=== PATIENT | male | born 1940 | race Caucasian/White ===

== ENCOUNTER → 2016-12-03 | Outpatient (CLI) | payer OTHER ==
[~2016-12-03] MED LIST: ALBU6.7H INH; APIX5TAB PO; ASPI-621 PO; ATOR40TA PO; ENOX120S5 SQ; FURO20TA3 PO; GUAI600T53 PO; HYDR-3241 PO; LEVO500T33 PO; LOSA100T6 PO; LOSA1TAB16 PO; LOSA1TAB18 PO; MELO-190 PO; METO25TA91 PO; PRED10TA PO; SENN1TAB7 PO; SIMV20TA3 PO; TEMA15CA6 PO; TIOT18CA INH; WARF5TAB PO; WARF7.5T PO
== END | disposition home or self-care (01) ==
LOC: LAB 09:45
PROVIDERS: ATTEND Internal Medicine
DX: Z79.899 Other long term (current) drug therapy (principal)
CPT/HCPCS: 36415; 80076

== ENCOUNTER → 2016-12-27 | Outpatient (CLI) | payer OTHER | END | disposition home or self-care (01) | LOC: RAD 09:45 | PROVIDERS: ATTEND Internal Medicine Geriatric Medicine | DX: Z51.89 Encounter for other specified aftercare (principal); R13.10 Dysphagia, unspecified; R05 Cough | CPT/HCPCS: 74230 ==

== ENCOUNTER 2016-12-29 13:05 | Emergency (ER) | payer OTHER ==
[~2016-12-29] VITALS: Ht 180.3 cm; Wt 122.5 kg
[2016-12-29] MEDS ORDERED: ASPIRIN 81 MG TABLET CHEW PO ONE (13:30)
[2016-12-29] MEDS ORDERED: SODIUM CHLORIDE FLUSH 10ML SYR IVF ONE (13:30)
[2016-12-29] MEDS ORDERED: DILTIAZEM 5 MG/ML, 5ML IVPush ONE (14:00)
[2016-12-29] MEDS ORDERED: PROPOFOL 10 MG/ML, 20ML IVPush ONE (14:00)
[2016-12-29 14:11] LABS: ASPARTATE AMINO TRANSFERASE 16 U/L (15-37); BLOOD UREA NITROGEN 30 mg/dL (7-18)
[2016-12-29] MEDS ORDERED: DILTIAZEM 5 MG/ML, 5ML ONE (14:14)
[2016-12-29] MEDS ORDERED: PROPOFOL 10 MG/ML, 20ML ONE (14:14)
[2016-12-29 14:16] LABS: IS PT STATUS REG ER OR PRE ER? YES
[2016-12-29] MEDS ORDERED: ASPIRIN 81 MG TABLET CHEW ONE (14:29)
[2016-12-29] MEDS ORDERED: LOSA25TA5 PO (15:09)
[2016-12-29] MEDS ORDERED: RIVA20TA PO (15:09)
[2016-12-29] MEDS ORDERED: METH2.5T PO (15:09)
[2016-12-29] MEDS ORDERED: SODIUM CHLORIDE 0.9%, 500ML IVBOLUS ONE ×2 (15:30→16:00)
[2016-12-29] MEDS ORDERED: ETOMIDATE 20 MG/10 ML ONE (15:51)
[2016-12-29] MEDS ORDERED: ETOMIDATE 20 MG/10 ML IVPush ONE (16:00)
[2016-12-29 16:14] LABS: IS PT STATUS REG ER OR PRE ER? YES
[2016-12-29 18:27] VITALS: BP 109/64
== END 2016-12-29 18:29 | disposition home or self-care (01) ==
LOC: ED 14:22
DX: I48.0 Paroxysmal atrial fibrillation (principal); R00.2 Palpitations; Z79.01 Long term (current) use of anticoagulants; I10 Essential (primary) hypertension; Z86.718 Personal history of other venous thrombosis and embolism
CPT/HCPCS: 36415; 71010; 80053; 83735; 83880; 84484; 85025; 92960; 93005; 93971; 96361; 96374; 99152; 99291; 99292; J7040

== ENCOUNTER 2017-01-05 10:09 | Emergency (ER) | payer OTHER ==
[~2017-01-05] VITALS: Ht 180.3 cm; Wt 123.3 kg
[~2017-01-05 10:09] MED LIST changes: +LOSA25TA5 PO; +METH2.5T PO; +RIVA20TA PO
[2017-01-05] MEDS ORDERED: SODIUM CHLORIDE 0.9% 1,000 ML IV ONE (11:07)
[2017-01-05] MEDS ORDERED: ASPIRIN 81 MG TABLET CHEW ONE (11:18)
[2017-01-05] MEDS ORDERED: SODIUM CHLORIDE FLUSH 10ML SYR IVF ONE (11:30)
[2017-01-05] MEDS ORDERED: ASPIRIN 81 MG TABLET CHEW PO ONE (11:30)
[2017-01-05 11:43] LABS: BLOOD UREA NITROGEN 24 mg/dL (7-18)
[2017-01-05 11:49] LABS: IS PT STATUS REG ER OR PRE ER? YES
[2017-01-05] MEDS ORDERED: PROPOFOL 10 MG/ML, 20ML IVPush ONE (12:00)
[2017-01-05] MEDS ORDERED: PROPOFOL 10 MG/ML, 20ML ONE (12:04)
[2017-01-05 13:05] VITALS: BP 107/62
== END 2017-01-05 13:35 | disposition home or self-care (01) ==
LOC: ED 10:45
DX: I48.0 Paroxysmal atrial fibrillation (principal); I10 Essential (primary) hypertension; J45.909 Unspecified asthma, uncomplicated; Z85.46 Personal history of malignant neoplasm of prostate
CPT/HCPCS: 36415; 71010; 80048; 82040; 83880; 84484; 85025; 92960; 93005; 96360; 96361; 99152; 99285; J2704; J7030

== ENCOUNTER 2017-01-26 10:47 | Emergency (ER) | payer OTHER ==
[~2017-01-26] VITALS: Ht 180.3 cm; Wt 124.0 kg
[2017-01-26] MEDS ORDERED: DILTIAZEM 5 MG/ML, 5ML IVPush ONE (11:03)
[2017-01-26] MEDS ORDERED: DILTIAZEM 5 MG/ML, 5ML ONE (11:05)
[2017-01-26] MEDS ORDERED: SODIUM CHLORIDE FLUSH 10ML SYR IVF ONE (11:30)
[2017-01-26] MEDS ORDERED: SODIUM CHLORIDE 0.9% 1,000ML IVBOLUS ONE (11:30)
[2017-01-26 11:35] LABS: ASPARTATE AMINO TRANSFERASE 18 U/L (15-37); BLOOD UREA NITROGEN 23 mg/dL (7-18)
[2017-01-26 11:39] LABS: IS PT STATUS REG ER OR PRE ER? YES
[2017-01-26 12:00] VITALS: BP 128/80
[2017-01-26] MEDS ORDERED: PROPOFOL 10 MG/ML, 20ML ONE (12:22)
[2017-01-26] MEDS ORDERED: PROPOFOL 10 MG/ML, 20ML IVP ONE (12:30)
== END 2017-01-26 13:43 | disposition home or self-care (01) ==
LOC: ED 12:59
DX: I48.0 Paroxysmal atrial fibrillation (principal); Z79.01 Long term (current) use of anticoagulants; I10 Essential (primary) hypertension; Z85.46 Personal history of malignant neoplasm of prostate
CPT/HCPCS: 36415; 71010; 80053; 83735; 83880; 84484; 85025; 85610; 93005; 96361; 96374; 99152; 99153; 99291; J7030

== ENCOUNTER → 2017-01-30 | Outpatient (CLI) | payer OTHER | LOC: STAR 13:34 | PROVIDERS: ATTEND Internal Medicine Cardiovascular Disease | DX: Z02.9 Encounter for administrative examinations, unspecified (principal) ==

== ENCOUNTER → 2017-01-31 | Outpatient (CLI) | payer OTHER ==
[~2017-01-31] MED LIST changes: +OMNIPAQUE 350 MG/ML, 150 ML BOTTLE ONE
== END | disposition home or self-care (01) ==
LOC: CFH 11:24
PROVIDERS: ATTEND Internal Medicine Cardiovascular Disease
DX: I48.91 Unspecified atrial fibrillation (principal); I49.9 Cardiac arrhythmia, unspecified; I26.99 Other pulmonary embolism without acute cor pulmonale; N28.9 Disorder of kidney and ureter, unspecified
CPT/HCPCS: 71020; 75572; Q9967

== ENCOUNTER 2017-02-02 17:50 | Emergency (ER) | payer OTHER ==
[~2017-02-02] VITALS: Ht 180.3 cm; Wt 123.8 kg
[~2017-02-02 17:50] MED LIST changes: -OMNIPAQUE 350 MG/ML, 150 ML BOTTLE ONE
[2017-02-02] MEDS ORDERED: LIDOCAINE 1%, 20ML ONE (19:00)
[2017-02-02] MEDS ORDERED: LIDOCAINE 1%, 20ML SQ ONE (19:00)
[2017-02-02] MEDS ORDERED: DIPH,PERTUSS(ACELL),TET VAC/PF 0.5 ML IM-VACC ONE ×2 (19:00)
[2017-02-02 21:17] VITALS: BP 152/81
== END 2017-02-02 21:19 | disposition home or self-care (01) ==
LOC: ED 21:10
DX: S62.521A Displaced fracture of distal phalanx of right thumb, initial encounter for closed fracture (principal); S61.011A Laceration without foreign body of right thumb without damage to nail, initial encounter; I10 Essential (primary) hypertension; I48.91 Unspecified atrial fibrillation; Z85.46 Personal history of malignant neoplasm of prostate; W45.8XXA Other foreign body or object entering through skin, initial encounter; Y93.89 Activity, other specified; Y92.89 Other specified places as the place of occurrence of the external cause; Y99.8 Other external cause status
CPT/HCPCS: 12001; 73140; 90471; 90715; 99284; J3490

== ENCOUNTER → 2017-05-09 | Outpatient (CLI) | payer OTHER ==
[~2017-05-09] MED LIST changes: +ALBU18HF INH; +CEPH-376 PO; -GUAI600T53 PO; +GUAI600T80 PO; +HYDR-3240 PO; -LEVO500T33 PO; +LEVO500T47 PO; -MELO-190 PO; +MELO7.5T31 PO; +OMEP40CA6 PO; +SOTA120T14 PO
== END | disposition home or self-care (01) ==
LOC: CFH 13:46
PROVIDERS: ATTEND Physician Assistant Surgical
DX: M16.0 Bilateral primary osteoarthritis of hip (principal); M25.752 Osteophyte, left hip; M43.28 Fusion of spine, sacral and sacrococcygeal region; M51.26 Other intervertebral disc displacement, lumbar region; M51.27 Other intervertebral disc displacement, lumbosacral region; M47.897 Other spondylosis, lumbosacral region; M47.896 Other spondylosis, lumbar region; M54.16 Radiculopathy, lumbar region; M48.06 Spinal stenosis, lumbar region
CPT/HCPCS: 72148; 73523

== ENCOUNTER → 2017-06-03 | Outpatient (CLI) | payer OTHER | END | disposition home or self-care (01) | LOC: CFH 11:48 | PROVIDERS: ATTEND Family Medicine | DX: Z01.818 Encounter for other preprocedural examination (principal); M47.894 Other spondylosis, thoracic region | CPT/HCPCS: 71020 ==

== ENCOUNTER 2017-12-27 15:35 | Emergency (ER) | payer OTHER ==
[~2017-12-27] VITALS: Ht 180.3 cm; Wt 125.0 kg
[~2017-12-27 15:35] MED LIST changes: -LOSA1TAB16 PO; -LOSA1TAB18 PO; +LOSA1TAB19 PO; +LOSA1TAB25 PO
[2017-12-27] MEDS ORDERED: SOTA80TA PO (16:16)
[2017-12-27] MEDS ORDERED: TIOT18CA INH (16:17)
[2017-12-27 16:25] LABS: BASOPHILS # (AUTO) 0.03 x10^3/uL (0-0.1); BASOPHILS % (AUTO) 0 % (0-1); EOSINOPHILS # (AUTO) 0.15 x10^3/uL (0-0.4); EOSINOPHILS % (AUTO) 2 % (1-7); LYMPHOCYTES # (AUTO) 1.69 x10^3/uL (1-3.4); LYMPHOCYTES % (AUTO) 20 % (22-44); MD NO; MEAN CORPUSCULAR HEMOGLOBIN 27.8 pg (27.5-34.5); MEAN CORPUSCULAR HGB CONC 33.3 g/dL (33.2-36.2); MEAN CORPUSCULAR VOLUME 83.3 fL (81-97); MEAN PLATELET VOLUME 8.4 fL (7.4-10.4); MONOCYTES # (AUTO) 0.86 x10^3/uL (0.2-0.8); MONOCYTES % (AUTO) 10 % (2-9); NEUTROPHILS # (AUTO) 5.73 x10^3/uL (1.8-6.8); NEUTROPHILS % (AUTO) 68 % (42-75); PLATELET COUNT 198 x10^3/uL (130-400); RED BLOOD COUNT 4.95 x10^6/uL (4.38-5.82); RED CELL DISTRIBUTION WIDTH 15.9 % (9.4-14.8)
[2017-12-27 16:37] LABS: ALBUMIN 3.9 g/dL (3.4-5.0); ANION GAP 8 mmol/L (5-15); CALCIUM 9.1 mg/dL (8.5-10.1); CHLORIDE 110 mmol/L (98-107); CREATININE 1.28 mg/dL (0.7-1.3)
[2017-12-27 16:40] LABS: TROPONIN I < 0.015 ng/mL (0.000-0.045)
[2017-12-27 17:19] VITALS: BP 114/71
== END 2017-12-27 17:48 | disposition home or self-care (01) ==
LOC: ED 17:30
DX: I48.0 Paroxysmal atrial fibrillation (principal); Z79.01 Long term (current) use of anticoagulants
CPT/HCPCS: 36415; 71045; 80048; 82040; 84484; 85025; 93005; 99285

== ENCOUNTER → 2018-01-05 | Outpatient (CLI) | payer OTHER ==
[~2018-01-05] MED LIST changes: +SOTA80TA PO
== END | disposition home or self-care (01) ==
LOC: CVU 09:01
PROVIDERS: ATTEND Internal Medicine Cardiovascular Disease
DX: I35.8 Other nonrheumatic aortic valve disorders (principal); J81.1 Chronic pulmonary edema; I10 Essential (primary) hypertension; G47.33 Obstructive sleep apnea (adult) (pediatric); I48.91 Unspecified atrial fibrillation; Z85.46 Personal history of malignant neoplasm of prostate
CPT/HCPCS: C8929

== ENCOUNTER → 2018-01-15 | Outpatient (CLI) | payer OTHER ==
[~2018-01-15] MED LIST changes: +REGADENOSON 0.4 MG/5 ML SYRINGE ONE
== END | disposition home or self-care (01) ==
LOC: CFH 11:47
PROVIDERS: ATTEND Internal Medicine Cardiovascular Disease
DX: R07.9 Chest pain, unspecified (principal)
CPT/HCPCS: 78452; 93017; A9502; J2785

== ENCOUNTER 2018-04-27 14:53 | Emergency (ER) | payer OTHER ==
[~2018-04-27] VITALS: Ht 180.3 cm; Wt 120.7 kg
[~2018-04-27 14:53] MED LIST changes: -REGADENOSON 0.4 MG/5 ML SYRINGE ONE
[2018-04-27 15:28] LABS: BASOPHILS # (AUTO) 0.04 x10^3/uL (0-0.1); BASOPHILS % (AUTO) 0 % (0-1); EOSINOPHILS % (AUTO) 0 % (1-7); LYMPHOCYTES # (AUTO) 0.72 x10^3/uL (1-3.4); LYMPHOCYTES % (AUTO) 5 % (22-44); MD NO; MEAN CORPUSCULAR HEMOGLOBIN 29.7 pg (27.5-34.5); MEAN CORPUSCULAR HGB CONC 33.9 g/dL (33.2-36.2); MEAN CORPUSCULAR VOLUME 87.4 fL (81-97); MEAN PLATELET VOLUME 8.5 fL (7.4-10.4); MONOCYTES % (AUTO) 7 % (2-9); NEUTROPHILS % (AUTO) 88 % (42-75); PLATELET COUNT 210 x10^3/uL (130-400); RED BLOOD COUNT 4.56 x10^6/uL (4.38-5.82)
[2018-04-27] MEDS ORDERED: LOSA1TAB25 PO (15:33)
[2018-04-27 15:41] LABS: ALBUMIN 3.8 g/dL (3.4-5.0); ANION GAP 8 mmol/L (5-15); CALCIUM 8.4 mg/dL (8.5-10.1); CHLORIDE 106 mmol/L (98-107)
[2018-04-27 15:47] LABS: ALANINE AMINOTRANSFERASE 40 U/L (12-78); ALKALINE PHOSPHATASE 71 U/L (45-117); BILIRUBIN,TOTAL 0.4 mg/dL (0.2-1.0); CREATININE 1.39 mg/dL (0.7-1.3); TOTAL PROTEIN 7.6 g/dL (6.4-8.2); TROPONIN I < 0.015 ng/mL (0.000-0.045)
[2018-04-27 16:06] LABS: FREE T4 (FREE THYROXINE) 0.91 ng/dL (0.76-1.46); THYROID STIMULATING HORMONE 0.502 mIU/L (0.358-3.740)
[2018-04-27 17:14] VITALS: BP 139/76
== END 2018-04-27 17:16 | disposition home or self-care (01) ==
LOC: ED 17:10
DX: R00.2 Palpitations (principal); N28.9 Disorder of kidney and ureter, unspecified; I11.9 Hypertensive heart disease without heart failure; J45.909 Unspecified asthma, uncomplicated; M19.90 Unspecified osteoarthritis, unspecified site; R53.83 Other fatigue; R07.9 Chest pain, unspecified; I49.9 Cardiac arrhythmia, unspecified; Z85.46 Personal history of malignant neoplasm of prostate; Z86.711 Personal history of pulmonary embolism
CPT/HCPCS: 36415; 71045; 80053; 83735; 83880; 84439; 84443; 84484; 85025; 93005; 99285

== ENCOUNTER → 2018-07-17 | Outpatient (CLI) | payer OTHER ==
[~2018-07-17] MED LIST changes: -LOSA100T6 PO; +LOSA100T7 PO; -LOSA25TA5 PO; +LOSA25TA6 PO; -SENN1TAB7 PO; +SENN1TAB8 PO; +TICA90TA PO
== END | disposition home or self-care (01) ==
LOC: CFH 15:20
PROVIDERS: ATTEND Family Medicine
DX: M75.121 Complete rotator cuff tear or rupture of right shoulder, not specified as traumatic (principal); M19.011 Primary osteoarthritis, right shoulder; M62.511 Muscle wasting and atrophy, not elsewhere classified, right shoulder; M25.411 Effusion, right shoulder

== ENCOUNTER 2018-12-02 17:30 | Emergency (ER) | payer BC, OTHER ==
[~2018-12-02] VITALS: Ht 180.3 cm; Wt 122.8 kg
[~2018-12-02 17:30] MED LIST changes: -ASPI-621 PO; +ASPI81TA45 PO; +LOSA100T14 PO; -LOSA100T7 PO; +LOSA25TA25 PO; -LOSA25TA6 PO; +SENN-177 PO; -SENN1TAB8 PO
[2018-12-02 17:38] VITALS: BP 179/92
[2018-12-02 18:14] LABS: INTERNATIONAL NORMALIZED RATIO 1.02 (0.93-1.1); PROTHROMBIN TIME 10.7 Seconds (9.6-11.5)
[2018-12-02 18:16] LABS: BASOPHILS # (AUTO) 0.02 x10^3/uL (0-0.1); BASOPHILS % (AUTO) 0 % (0-1); EOSINOPHILS # (AUTO) 0.26 x10^3/uL (0-0.4); EOSINOPHILS % (AUTO) 5 % (1-7); LYMPHOCYTES # (AUTO) 1.17 x10^3/uL (1-3.4); LYMPHOCYTES % (AUTO) 22 % (22-44); MD NO; MEAN CORPUSCULAR HEMOGLOBIN 28.9 pg (27.5-34.5); MEAN CORPUSCULAR HGB CONC 33.9 g/dL (33.2-36.2); MEAN CORPUSCULAR VOLUME 85.1 fL (81-97); MEAN PLATELET VOLUME 8.3 fL (7.4-10.4); MONOCYTES # (AUTO) 0.55 x10^3/uL (0.2-0.8); MONOCYTES % (AUTO) 10 % (2-9); NEUTROPHILS # (AUTO) 3.34 x10^3/uL (1.8-6.8); NEUTROPHILS % (AUTO) 63 % (42-75); PLATELET COUNT 168 x10^3/uL (130-400); RED BLOOD COUNT 4.18 x10^6/uL (4.38-5.82); RED CELL DISTRIBUTION WIDTH 15.8 % (9.4-14.8)
[2018-12-02 18:17] LABS: ALANINE AMINOTRANSFERASE 23 U/L (12-78); ALBUMIN 3.9 g/dL (3.4-5.0); ANION GAP 5 mmol/L (5-15); CALCIUM 8.6 mg/dL (8.5-10.1); CHLORIDE 108 mmol/L (98-107); CREATININE 1.46 mg/dL (0.7-1.3)
[2018-12-02 18:20] LABS: ALKALINE PHOSPHATASE 70 U/L (45-117); BILIRUBIN,TOTAL 0.5 mg/dL (0.2-1.0); TOTAL PROTEIN 6.9 g/dL (6.4-8.2)
--- NOTE | 2018-12-02 18:37 | NUR ---
FIRST CONTACT WITH PT. NAD NOTED. PT AMBULATED STEADILY TO BATHROOM TO PROVIDE UA . UA COLLECTED AND SENT TO LAB. PT CO BLOOD IN URINE X LAST NIGHT, WORSENING TODAY. ON BLOOD THINNER, XARELTO, FOR AFIB. PT DENIES ABD PAIN/PAINFUL URINATION/CHILLS/N/V. HX OF BPH.
[2018-12-02] MEDS ORDERED: PRAS10TA4 PO (18:43)
[2018-12-02] MEDS ORDERED: ATOR-2 PO (18:43)
[2018-12-02 18:49] LABS: MICROSCOPIC INDICATED
[2018-12-02 18:57] LABS: CULTURE INDICATED? NO
--- NOTE | 2018-12-02 19:52 | NUR ---
3 way hernandez catheter inserted. manual irrigation attempted, blood tinged output with no clots. CBI started.
--- NOTE | 2018-12-02 19:54 | NUR ---
CONTINUOUS BLADDER IRRIGATION UNDERWAY. OUTPUT PINK, NO CLOTS OR MAGDA BLOOD NOTED. PT DENIES PAIN/NEEDS AT THIS TIME.
--- NOTE | 2018-12-02 20:37 | NUR ---
DC INSTRUCTIONS REVIEWED WITH PT WHO DEMONSTRATES UNDERSTANDING. AWAITING BLADDER IRRIGATION TO COMPLETE TO DC COWAN AND DC PT.
--- NOTE | 2018-12-02 21:16 | NUR ---
COWAN DC'D WO DIFFICULTY. PT AMBULATED STEADILY TO DC WITH RN
== END 2018-12-02 21:18 | disposition home or self-care (01) ==
LOC: ED 19:27
DX: R31.0 Gross hematuria (principal); J45.909 Unspecified asthma, uncomplicated; I10 Essential (primary) hypertension
CPT/HCPCS: 36415; 74176; 80053; 81001; 85025; 85610; 85730; 99284

== ENCOUNTER 2019-10-14 10:11 | Day surgery (SDC) | payer BC ==
[~2019-10-14] VITALS: Ht 180.3 cm; Wt 120.0 kg
[~2019-10-14 10:11] MED LIST changes: -ALBU6.7H INH; +ALBU6.7H8 INH; +ATOR-2 PO; +OMEP40CA42 PO; -OMEP40CA6 PO; +PRAS10TA4 PO; +SIMV20TA19 PO; -SIMV20TA3 PO
[2019-10-14] MEDS ORDERED: LIDOCAINE 2%, 20ML ONE (11:01)
[2019-10-14] MEDS ORDERED: LIDOCAINE 1%, 20ML ONE (11:01)
== END 2019-10-14 12:01 | disposition home or self-care (01) ==
LOC: CACL 10:11
PROVIDERS: ATTEND Internal Medicine Cardiovascular Disease
DX: I63.9 Cerebral infarction, unspecified (principal); G47.30 Sleep apnea, unspecified; I48.91 Unspecified atrial fibrillation; E78.5 Hyperlipidemia, unspecified; K21.9 Gastro-esophageal reflux disease without esophagitis; M06.9 Rheumatoid arthritis, unspecified; I10 Essential (primary) hypertension; E66.3 Overweight; Z68.37 Body mass index [BMI] 37.0-37.9, adult; Z79.01 Long term (current) use of anticoagulants; Z79.82 Long term (current) use of aspirin; Z79.899 Other long term (current) drug therapy; Z96.641 Presence of right artificial hip joint; Z98.61 Coronary angioplasty status
CPT/HCPCS: 33285; C1764

== ENCOUNTER 2019-11-01 08:29 | Day surgery (SDC) | payer BC ==
[~2019-11-01] VITALS: Ht 180.3 cm; Wt 120.0 kg
[2019-11-01 08:48] VITALS: BP 138/66
[2019-11-01] MEDS ORDERED: ROSU10TA2 PO (08:52)
[2019-11-01] MEDS ORDERED: SOTA80TA PO (08:54)
[2019-11-01] MEDS ORDERED: PLEASE ENTER HEIGHT AND WEIGHT MC SCH (09:00)
[2019-11-01] MEDS ORDERED: SODIUM CHLORIDE 0.9% 1,000 ML IV SCH (09:00)
[2019-11-01] MEDS ORDERED: PROPOFOL 10 MG/ML, 20ML ONE (10:10)
== END 2019-11-01 12:12 | disposition home or self-care (01) ==
LOC: CACL 08:29
PROVIDERS: ATTEND Internal Medicine Cardiovascular Disease
DX: I48.91 Unspecified atrial fibrillation (principal); I34.0 Nonrheumatic mitral (valve) insufficiency; G45.9 Transient cerebral ischemic attack, unspecified; E78.5 Hyperlipidemia, unspecified; G47.30 Sleep apnea, unspecified; I10 Essential (primary) hypertension; Z79.82 Long term (current) use of aspirin; Z98.890 Other specified postprocedural states; Z98.61 Coronary angioplasty status
CPT/HCPCS: 93312; 93321; 93325; J2704

== ENCOUNTER 2019-11-05 22:06 | Inpatient (IN) | payer BC ==
[~2019-11-05] VITALS: Ht 180.3 cm; Wt 108.1 kg
[~2019-11-05 22:06] MED LIST changes: +ROSU10TA2 PO
[2019-11-05] MEDS ORDERED: SODIUM CHLORIDE FLUSH 10ML SYR IVF ONE (22:30)
[2019-11-05] MEDS ORDERED: ONDANSETRON 2MG/ML, 2ML IVPush ONE (22:30)
[2019-11-05] MEDS ORDERED: ASPIRIN 81 MG TABLET CHEW PO ONE (22:30)
[2019-11-05] MEDS ORDERED: NITROGLYCERIN SINGLE TAB 0.4 MG SL PRN (22:30)
[2019-11-05] MEDS ORDERED: MORPHINE SULFATE 4 MG/ML, 1ML IVPush PRN (22:30)
[2019-11-05 22:37] LABS: BASOPHILS # (AUTO) 0.04 x10^3/uL (0-0.1); BASOPHILS % (AUTO) 1 % (0-1); EOSINOPHILS # (AUTO) 0.23 x10^3/uL (0-0.4); EOSINOPHILS % (AUTO) 3 % (1-7); LYMPHOCYTES # (AUTO) 1.63 x10^3/uL (1-3.4); LYMPHOCYTES % (AUTO) 23 % (22-44); MD NO; MEAN CORPUSCULAR HEMOGLOBIN 29.1 pg (27.5-34.5); MEAN CORPUSCULAR HGB CONC 33.4 g/dL (33.2-36.2); MEAN CORPUSCULAR VOLUME 87.2 fL (81-97); MEAN PLATELET VOLUME 8.7 fL (7.4-10.4); MONOCYTES # (AUTO) 0.84 x10^3/uL (0.2-0.8); MONOCYTES % (AUTO) 12 % (2-9); NEUTROPHILS % (AUTO) 62 % (42-75); PLATELET COUNT 154 x10^3/uL (130-400); RED BLOOD COUNT 4.46 x10^6/uL (4.38-5.82); RED CELL DISTRIBUTION WIDTH 14.9 % (9.4-14.8)
[2019-11-05] MEDS ORDERED: ONDANSETRON 2MG/ML, 2ML ONE (22:38)
[2019-11-05] MEDS ORDERED: MORPHINE SULFATE 4 MG/ML, 1ML ONE (22:38)
[2019-11-05] MEDS ORDERED: ASPIRIN 81 MG TABLET CHEW ONE (22:38)
[2019-11-05] MEDS ORDERED: NITROGLYCERIN SINGLE TAB 0.4 MG SL ONE (22:38)
--- NOTE | 2019-11-05 22:40 | NUR ---
THIS IS A 79 YO MALE COMING IN FOR INTERMTTENT "CHEST PRESSURE AND HEAVINESS" STARTING AT 10AM, RADIATES ACROSS CHEST WITH SOB WHEN SENSATION COMES ON AND RIGHT SIDED FACIAL NUMBNESS. DENIES ANY PAIN OR SOB AT THIS TIME. PATIENT HAS HX OF STENTS PLACED, PATIENT UNSURE IF THEY WERE PLACED FROM [place]. PATIENT HAS HX OF TIA ONE MONTH AGO, AND AFIB. A&OX4, SPEAKING IN FULL SENTENCES, CSM IN TACT IN ALL 4 EXTREMITIES. ALL MONITORING IN PLACE, AFIB ON MONITOR AT RATE OF 59. ERP TO ROOM AT THIS TIME.
[2019-11-05 22:47] LABS: ALANINE AMINOTRANSFERASE 26 U/L (12-78); ALBUMIN 3.6 g/dL (3.4-5.0); ANION GAP 5 mmol/L (5-15); CALCIUM 8.7 mg/dL (8.5-10.1); CHLORIDE 107 mmol/L (98-107); CREATININE 1.67 mg/dL (0.7-1.3)
[2019-11-05 22:51] LABS: ALKALINE PHOSPHATASE 69 U/L (45-117); BILIRUBIN,TOTAL 0.4 mg/dL (0.2-1.0); TOTAL PROTEIN 6.8 g/dL (6.4-8.2); TROPONIN I 0.082 ng/mL (0.000-0.045)
--- NOTE | 2019-11-05 22:54 | NUR ---
PATIENT MEDICATED PER EMAR, TOLERATED WELL. PATIENT REFUSING MORPHINE AND ZOFRAN AT THIS TIME. ERP AWARE
[2019-11-05 23:06] LABS: INTERNATIONAL NORMALIZED RATIO 1.09 (0.93-1.1); PROTHROMBIN TIME 11.6 Seconds (9.6-11.5)
--- NOTE | 2019-11-05 23:21 | NUR ---
ERP TO BEDSIDE, PATIENT TO BE ADMITTED, VSS, BP AT 90/49, ERP AND ADMITTING MD NOTIFIED.
--- NOTE | 2019-11-05 23:25 | NUR ---
MANUAL BP TAKEN 102/68. ERP NOTIFIED
--- NOTE | 2019-11-05 23:58 | NUR ---
REPORT GIVEN TO CATHY WONG. PLAN OF CARE DISCUSSED
[2019-11-06] MEDS ORDERED: LIDODERM 5% PATCH TD PRN
[2019-11-06] MEDS ORDERED: HEPARIN 5,000 UNITS/ML, 1ML SQ SCH
[2019-11-06] MEDS ORDERED: DOCUSATE 100 MG CAPSULE PO PRN
[2019-11-06] MEDS ORDERED: TEMAZEPAM 15 MG CAPSULE PO PRN
[2019-11-06] MEDS ORDERED: NITROGLYCERIN 0.4 MG BOTTLE (25 TABS) SL PRN
[2019-11-06] MEDS ORDERED: ACETAMINOPHEN 325 MG TABLET PO PRN
[2019-11-06] MEDS ORDERED: ONDANSETRON ODT 4 MG PO PRN
[2019-11-06 00:49] VITALS: BP 115/74
[2019-11-06] MEDS ORDERED: ALBUTEROL/IPRATROPIUM 2.5MG/0.5MG, 3 ML NPPB SCH (01:30)
[2019-11-06] MEDS: HEPARIN/XARELTO MC SCH ×2 (02:42→05:25)
[2019-11-06] MEDS: SODIUM CHLORIDE 0.9% 1,000 ML IV SCH ×2 (03:08→09:12)
[2019-11-06 04:59] LABS: BASOPHILS # (AUTO) 0.02 x10^3/uL (0-0.1); BASOPHILS % (AUTO) 0 % (0-1); EOSINOPHILS # (AUTO) 0.23 x10^3/uL (0-0.4); EOSINOPHILS % (AUTO) 4 % (1-7); LYMPHOCYTES % (AUTO) 24 % (22-44); MD NO; MEAN CORPUSCULAR HEMOGLOBIN 29.3 pg (27.5-34.5); MEAN CORPUSCULAR HGB CONC 33.5 g/dL (33.2-36.2); MEAN CORPUSCULAR VOLUME 87.5 fL (81-97); MEAN PLATELET VOLUME 8.7 fL (7.4-10.4); MONOCYTES # (AUTO) 0.83 x10^3/uL (0.2-0.8); MONOCYTES % (AUTO) 13 % (2-9); NEUTROPHILS # (AUTO) 3.97 x10^3/uL (1.8-6.8); NEUTROPHILS % (AUTO) 60 % (42-75); PLATELET COUNT 134 x10^3/uL (130-400); RED BLOOD COUNT 4.04 x10^6/uL (4.38-5.82); RED CELL DISTRIBUTION WIDTH 14.5 % (9.4-14.8)
[2019-11-06 05:12] LABS: ANION GAP 5 mmol/L (5-15); CHLORIDE 110 mmol/L (98-107)
[2019-11-06 05:28] LABS: CALCIUM 8.5 mg/dL (8.5-10.1); CREATININE 1.45 mg/dL (0.7-1.3); TROPONIN I 0.096 ng/mL (0.000-0.045)
[2019-11-06 06:55] VITALS: BP 102/63
[2019-11-06] MEDS ORDERED: ALBUTEROL/IPRATROPIUM 2.5MG/0.5MG, 3 ML NPPB PRN (08:00)
[2019-11-06] MEDS ORDERED: TEMPLATE NON-FORMULARY MED. (Albuterol Sulfate (Ventolin Hfa) 2 PUFF(S)) INH SCH (09:00)
[2019-11-06] MEDS: ASPIRIN 81 MG TABLET EC PO SCH (09:04)
[2019-11-06] MEDS: HYDROCHLOROTHIAZIDE 12.5 MG CAPSULE PO SCH (09:04)
[2019-11-06] MEDS: LOSARTAN 100 MG TAB PO SCH (09:05)
[2019-11-06] MEDS: SOTALOL 80MG TABLET PO SCH ×2 (09:06→21:05)
[2019-11-06] MEDS: RIVAROXABAN 20 MG TABLET PO SCH (09:12)
[2019-11-06] MEDS ORDERED: REGADENOSON 0.4 MG/5 ML SYRINGE ONE (10:35)
[2019-11-06 13:01] LABS: TROPONIN I 0.068 ng/mL (0.000-0.045)
[2019-11-06 13:07] VITALS: BP 129/69
[2019-11-06 19:32] VITALS: BP 130/75
[2019-11-06 21:02] VITALS: BP 131/77
[2019-11-06 23:51] VITALS: BP 124/67
[2019-11-07 07:05] VITALS: BP 106/64
[2019-11-07] MEDS ORDERED: LOSA100T2 PO (10:21)
[2019-11-07] MEDS ORDERED: ATOR40TA PO (10:26)
[2019-11-07] MEDS: HYDROCHLOROTHIAZIDE 12.5 MG CAPSULE PO SCH (11:15)
[2019-11-07] MEDS: RIVAROXABAN 20 MG TABLET PO SCH (11:15)
[2019-11-07] MEDS: LOSARTAN 100 MG TAB PO SCH (11:15)
[2019-11-07] MEDS: ASPIRIN 81 MG TABLET EC PO SCH (11:16)
[2019-11-07] MEDS: SOTALOL 80MG TABLET PO SCH (11:16)
== END 2019-11-07 12:26 | disposition home or self-care (01) | DRG 280 ==
LOC: ED 22:56 → EDIP 23:19 → 5SO 11-06 00:09 → DCLOUNGE 11-07 12:20
PROVIDERS: ADMIT Internal Medicine; ATTEND Internal Medicine
DX: I21.4 Non-ST elevation (NSTEMI) myocardial infarction (principal); N17.0 Acute kidney failure with tubular necrosis; D68.59 Other primary thrombophilia; I69.354 Hemiplegia and hemiparesis following cerebral infarction affecting left non-dominant side; D64.9 Anemia, unspecified; E78.5 Hyperlipidemia, unspecified; G47.30 Sleep apnea, unspecified; I11.9 Hypertensive heart disease without heart failure; I25.10 Atherosclerotic heart disease of native coronary artery without angina pectoris; I48.0 Paroxysmal atrial fibrillation; M06.9 Rheumatoid arthritis, unspecified; J44.9 Chronic obstructive pulmonary disease, unspecified; R29.810 Facial weakness; Z79.01 Long term (current) use of anticoagulants; Z79.82 Long term (current) use of aspirin; Z80.3 Family history of malignant neoplasm of breast; Z85.46 Personal history of malignant neoplasm of prostate; Z86.711 Personal history of pulmonary embolism; Z87.891 Personal history of nicotine dependence; Z95.5 Presence of coronary angioplasty implant and graft
CPT/HCPCS: 36415; 71045; 78452; 80048; 80053; 83735; 83880; 84100; 84484; 85025; 85610; 85730; 93005; 93017; 93306; 99285; G0378; J1644; J2785; A9502; J7030

== ENCOUNTER 2020-06-09 10:19 | Inpatient (IN) | payer BC ==
[~2020-06-09] VITALS: Ht 180.3 cm; Wt 118.6 kg
[~2020-06-09 10:19] MED LIST changes: +LOSA100T2 PO; -WARF5TAB PO; +WARF5TAB2 PO
[2020-06-09 11:08] LABS: BASOPHILS # (AUTO) 0.01 x10^3/uL (0-0.1); BASOPHILS % (AUTO) 0 % (0-1); EOSINOPHILS # (AUTO) 0.24 x10^3/uL (0-0.4); EOSINOPHILS % (AUTO) 3 % (1-7); LYMPHOCYTES # (AUTO) 1.14 x10^3/uL (1-3.4); LYMPHOCYTES % (AUTO) 16 % (22-44); MD NO; MEAN CORPUSCULAR HEMOGLOBIN 29.6 pg (27.5-34.5); MEAN CORPUSCULAR HGB CONC 32.7 g/dL (33.2-36.2); MEAN PLATELET VOLUME 8.4 fL (7.4-10.4); MONOCYTES # (AUTO) 0.63 x10^3/uL (0.2-0.8); MONOCYTES % (AUTO) 9 % (2-9); NEUTROPHILS % (AUTO) 72 % (42-75); PLATELET COUNT 173 x10^3/uL (130-400); RED BLOOD COUNT 4.81 x10^6/uL (4.38-5.82); RED CELL DISTRIBUTION WIDTH 14.8 % (9.4-14.8)
[2020-06-09 11:13] LABS: ALANINE AMINOTRANSFERASE 27 U/L (12-78); ALBUMIN 3.9 g/dL (3.4-5.0); ANION GAP 3 mmol/L (5-15); CALCIUM 9.3 mg/dL (8.5-10.1); CHLORIDE 108 mmol/L (98-107); CREATININE 1.28 mg/dL (0.7-1.3)
[2020-06-09 11:15] LABS: INTERNATIONAL NORMALIZED RATIO 1.12 (0.93-1.1); PROTHROMBIN TIME 11.5 Seconds (9.6-11.5)
[2020-06-09 11:18] LABS: ALKALINE PHOSPHATASE 52 U/L (45-117); BILIRUBIN,TOTAL 0.9 mg/dL (0.2-1.0); TOTAL PROTEIN 7.7 g/dL (6.4-8.2); TROPONIN I < 0.015 ng/mL (0.000-0.045)
--- NOTE | 2020-06-09 11:26 | NUR ---
PT REPORTS THAT HE FELL APPROXIMATELY 8 DAYS AGO AND ON FRIDAY HE STARTED TO FEEL DIZZY AND LIGHT HEADED. HE WENT INTO [facility] FRIDAY AND HE REPORTS HIS HR WAS IN THE 40S. HE WENT TO THE SALESPERSON [facility] TODAY AND THEY SENT HIM HERE. PT REPORTS "MY SALESPERSON [facility] TOLD ME TO COME HERE BECAUSE I NEED TO STAY AND GET A PACEMAKER". PT ON NUTRITION TECHNICIAN AND CONTINUOUS PULSE OXIMETRY.
[2020-06-09] MEDS ORDERED: GADOTERATE 7.5 MMOL/15 ML SYR ONE (11:39)
--- NOTE | 2020-06-09 11:39 | NUR ---
PT TO MRI VIA [facility].
[2020-06-09 12:43] VITALS: BP 162/107
[2020-06-09 13:50] VITALS: BP 152/71
[2020-06-09] MEDS ORDERED: DOCUSATE 100 MG CAPSULE PO PRN (14:00)
[2020-06-09] MEDS ORDERED: LABETALOL 5MG/ML, 20ML IVPush PRN (14:00)
[2020-06-09] MEDS ORDERED: ONDANSETRON 2MG/ML, 2ML IVPush PRN (14:00)
[2020-06-09] MEDS ORDERED: ONDANSETRON ODT 4 MG PO PRN (14:00)
[2020-06-09] MEDS ORDERED: POLYETHYLENE GLYCOL 17 GM PACKET PO PRN (14:00)
[2020-06-09] MEDS ORDERED: ACETAMINOPHEN 325 MG TABLET PO PRN (14:00)
[2020-06-09] MEDS ORDERED: BISACODYL 10 MG SUPP PR PRN (14:00)
[2020-06-09] MEDS ORDERED: ENALAPRILAT 1.25 MG/ML, 2ML IVPush PRN (14:00)
[2020-06-09] MEDS ORDERED: hydrALAzine 20 MG/ML, 1ML IVPush PRN (14:00)
[2020-06-09 17:04] LABS: MICROSCOPIC NOT IND
[2020-06-09 18:58] VITALS: BP 148/77
[2020-06-09] MEDS: ATORVASTATIN 40 MG TABLET PO SCH (20:31)
[2020-06-09] MEDS: SOTALOL 80MG TABLET PO SCH (20:44)
[2020-06-10 00:48] VITALS: BP 125/60
[2020-06-10 05:15] LABS: ANION GAP 5 mmol/L (5-15); CALCIUM 9.1 mg/dL (8.5-10.1); CHLORIDE 109 mmol/L (98-107); CREATININE 1.12 mg/dL (0.7-1.3)
[2020-06-10 07:18] VITALS: BP 117/64
[2020-06-10] MEDS ORDERED: TIOTROPIUM BROMIDE 18 MCG/INH INH SCH (09:00)
[2020-06-10] MEDS ORDERED: ENOXAPARIN 40 MG/0.4 ML SQ SCH (09:00)
[2020-06-10] MEDS ORDERED: CEFAZOLIN PMX 1GM/50ML 50 ML IVPB ONE (09:00)
[2020-06-10] MEDS ORDERED: RIVAROXABAN 20 MG TABLET PO SCH (09:00)
[2020-06-10] MEDS: SOTALOL 80MG TABLET PO SCH ×2 (09:02→21:21)
[2020-06-10] MEDS: ASPIRIN 81 MG TABLET EC PO SCH (09:02)
[2020-06-10] MEDS: LOSARTAN 100 MG TAB PO SCH (09:03)
[2020-06-10] MEDS: SENNA/DOCUSATE TABLET PO SCH ×2 (09:03→21:16)
[2020-06-10] MEDS: SODIUM CHLORIDE 0.9% 1,000 ML IV SCH (09:11)
[2020-06-10] MEDS ORDERED: TIOTROPIUM BROMIDE 18 MCG/INH INH PRN (10:00)
[2020-06-10 13:38] VITALS: BP 141/77
[2020-06-10] MEDS: ATORVASTATIN 40 MG TABLET PO SCH (21:16)
[2020-06-10 21:24] VITALS: BP 163/83
[2020-06-11 02:19] VITALS: BP 138/79
[2020-06-11] MEDS: SODIUM CHLORIDE 0.9% 1,000 ML IV SCH ×2 (02:21→11:00)
[2020-06-11 06:50] VITALS: BP 134/69
[2020-06-11] MEDS ORDERED: CEFAZOLIN PMX 1GM/50ML 50 ML IV ONE (08:30)
[2020-06-11] MEDS: ASPIRIN 81 MG TABLET EC PO SCH (09:00)
[2020-06-11] MEDS: LOSARTAN 100 MG TAB PO SCH (09:01)
[2020-06-11] MEDS: SOTALOL 80MG TABLET PO SCH ×2 (09:01→20:41)
[2020-06-11] MEDS ORDERED: CEFAZOLIN PMX 1GM/50ML 50 ML ONE (09:03)
[2020-06-11] MEDS ORDERED: FENTANYL PF 100 MCG/2ML ONE (09:03)
[2020-06-11] MEDS ORDERED: CEFAZOLIN 1,000 MG ONE (09:03)
[2020-06-11] MEDS ORDERED: LIDOCAINE 2%, 20ML ONE (09:03)
[2020-06-11] MEDS ORDERED: MIDAZOLAM 1 MG/ML, 5ML ONE (09:03)
[2020-06-11] MEDS ORDERED: LIDOCAINE 1%, 20ML ONE (09:54)
[2020-06-11] MEDS ORDERED: HYDROcodone/APAP 5/325 TABLET PO PRN (11:00)
[2020-06-11] MEDS ORDERED: HOLD MEDICATION MC PRN (11:00)
[2020-06-11 12:28] VITALS: BP 154/85
[2020-06-11] MEDS: SENNA/DOCUSATE TABLET PO SCH ×2 (13:28→20:41)
[2020-06-11] MEDS: CEFAZOLIN PMX 1GM/50ML 50 ML IVPB SCH (17:03)
[2020-06-11 19:34] VITALS: BP 149/74
[2020-06-11] MEDS: ATORVASTATIN 40 MG TABLET PO SCH (20:41)
[2020-06-11] MEDS: SODIUM CHLORIDE FLUSH 10ML SYR IVF SCH (20:43)
[2020-06-11 23:34] VITALS: BP 150/88
[2020-06-12] MEDS: CEFAZOLIN PMX 1GM/50ML 50 ML IVPB SCH (00:57)
[2020-06-12 07:03] VITALS: BP 131/77
[2020-06-12] MEDS ORDERED: RIVAROXABAN 20 MG TABLET PO SCH (09:00)
[2020-06-12] MEDS: SODIUM CHLORIDE FLUSH 10ML SYR IVF SCH (09:01)
[2020-06-12] MEDS: SOTALOL 80MG TABLET PO SCH (09:02)
[2020-06-12] MEDS: ASPIRIN 81 MG TABLET EC PO SCH (09:02)
[2020-06-12] MEDS: SENNA/DOCUSATE TABLET PO SCH (09:02)
[2020-06-12] MEDS: LOSARTAN 100 MG TAB PO SCH (09:02)
== END 2020-06-12 14:24 | disposition home or self-care (01) | DRG 243 ==
LOC: ED 11:31 → 5SO 11:49
PROVIDERS: ADMIT Family Medicine; ATTEND Family Medicine
PROC: 0JH606Z Insertion of Pacemaker, Dual Chamber into Chest Subcutaneous Tissue and Fascia, Open Approach (ICD-10-PCS; principal; 2020-06-11)
PROC: 02HK3JZ Insertion of Pacemaker Lead into Right Ventricle, Percutaneous Approach (ICD-10-PCS; 2020-06-11)
PROC: 02H63JZ Insertion of Pacemaker Lead into Right Atrium, Percutaneous Approach (ICD-10-PCS; 2020-06-11)
DX: I49.5 Sick sinus syndrome (principal); D68.69 Other thrombophilia; I25.10 Atherosclerotic heart disease of native coronary artery without angina pectoris; W18.39XA Other fall on same level, initial encounter; G47.30 Sleep apnea, unspecified; I48.0 Paroxysmal atrial fibrillation; Z95.818 Presence of other cardiac implants and grafts; Z86.73 Personal history of transient ischemic attack (TIA), and cerebral infarction without residual deficits; Z79.899 Other long term (current) drug therapy; Z79.01 Long term (current) use of anticoagulants; Z79.891 Long term (current) use of opiate analgesic; Z86.711 Personal history of pulmonary embolism; Z85.46 Personal history of malignant neoplasm of prostate; Z80.3 Family history of malignant neoplasm of breast; Z82.49 Family history of ischemic heart disease and other diseases of the circulatory system; Y93.89 Activity, other specified; Y92.89 Other specified places as the place of occurrence of the external cause; Y99.8 Other external cause status; Z79.82 Long term (current) use of aspirin
CPT/HCPCS: 36415; 99285; J3490; 33208; 70553; 71045; 80048; 80053; 81003; 83735; 84484; 85025; 85610; 85730; 93005; 93880; 99156; 99157; C1779; C1785; C1892; G0378; J0690; J2250; J3010; A9575; J7030